=== PATIENT | male | born 1930 | race Caucasian/White ===

== ENCOUNTER 2018-06-15 12:44 | Emergency (ER) | payer MEDICARE, BC ==
[~2018-06-15] VITALS: Ht 172.7 cm; Wt 81.6 kg
[2018-06-15] MEDS ORDERED: IPRATRPIUM/ALBUTEROL 0.5/2.5MG 3 ML NEBU. NEB ONE (14:00)
[2018-06-15] MEDS ORDERED: predniSONE 10 MG TABLET PO ONE (14:00)
--- NOTE | 2018-06-15 14:11 | PHYS DOC ---
Past Medical History Past Medical History: High Cholesterol, Hypertension Past Surgical History: Other Additional Past Surgical Histo: VALVE REPLACEMENT X 2 Alcohol Use: None Drug Use: None Adult General Chief Complaint Chief Complaint: SHORTNESS OF BREATH HPI HPI Patient is a 87 year old male who presents with productive cough for the last 4 weeks and shortness of air. He denies fever. He states been taking Mucinex the last Mucinex pill being last night. Patient states is thick brown mucus. He states that he started feeling better yesterday so today he was got up and went outside and once the corner his lungs he began coughing. Patient denies body aches, fever, chest pain, nausea, vomiting, diarrhea, dizziness, syncope, numbness or tingling. Patient states he also has a headache because sinus congestion. Review of Systems Review of Systems Constitutional: Denies fever or chills [] Eyes: Denies change in visual acuity, redness, or eye pain [] HENT: nasal congestion or denies sore throat [] Respiratory: cough or shortness of breath [] Cardiovascular: No additional information not addressed in HPI [] GI: Denies abdominal pain, nausea, vomiting, bloody stools or diarrhea [] : Denies dysuria or hematuria [] Musculoskeletal: Denies back pain or joint pain [] Integument: Denies rash or skin lesions [] Neurologic: Denies headache, focal weakness or sensory changes [] All other systems were reviewed and found to be within normal limits, except as documented in this note. Current Medications Current Medications Current Medications Medications (Trade) Dose Ordered Sig/Nolan Start Time Stop Time Status Last Admin Dose Admin Albuterol/ Ipratropium (Duoneb) 3 ml 1X ONCE 06/15/18 14:00 06/15/18 14:01 DC 06/15/18 14:44 3 ML Prednisone (Prednisone) 50 mg 1X ONCE 06/15/18 14:00 06/15/18 14:01 DC 06/15/18 14:00 50 MG Allergies Allergies Allergies Coded Allergies Type Severity Reaction Last Updated Verified No Known Drug Allergies 06/15/18 No Physical Exam Physical Exam Constitutional: Well developed, well nourished, no acute distress, non-toxic appearance. [] HENT: Normocephalic, atraumatic, bilateral external ears normal, oropharynx moist, no oral exudates, nose normal. Bilateral tympanics boggy [] Eyes: PERRLA, EOMI, conjunctiva normal, no discharge. [] Neck: Normal range of motion, no tenderness, supple, no stridor. [] Cardiovascular:Heart rate regular rhythm, no murmur [] Lungs & Thorax: Bilateral upper breath sounds clear expiratory wheezes to auscultation [] Abdomen: Bowel sounds normal, soft, no tenderness, no masses, no pulsatile masses. [] Skin: Warm, dry, no erythema, no rash. [] Back: No tenderness, no CVA tenderness. [] Extremities: No tenderness, no cyanosis, no clubbing, ROM intact, no edema. [] Neurologic: Alert and oriented X 3, normal motor function, normal sensory function, no focal deficits noted. [] Psychologic: Affect normal, judgement normal, mood normal. [] Current Patient Data Vital Signs Vital Signs Date Time Temp Pulse Resp B/P (MAP) Pulse Ox O2 Delivery O2 Flow Rate FiO2 06/15/18 14:44 Room Air 06/15/18 13:03 97.9 57 21 165/82 (109) 96 97.9 Lab Values Laboratory Tests Test 06/15/18 14:51 White Blood Count 8.0 x10^3/uL (4.0-11.0) Red Blood Count 4.53 x10^6/uL (4.30-5.70) Hemoglobin 14.3 g/dL (13.0-17.5) Hematocrit 42.4 % (39.0-53.0) Mean Corpuscular Volume 94 fL (79-100) Mean Corpuscular Hemoglobin 32 pg (25-35) Mean Corpuscular Hemoglobin Concent 34 g/dL (31-37) Red Cell Distribution Width 14.5 % (11.5-14.5) Platelet Count 203 x10^3/uL (140-400) Neutrophils (%) (Auto) 61 % (31-73) Lymphocytes (%) (Auto) 24 % (24-48) Monocytes (%) (Auto) 9 % (0-9) Eosinophils (%) (Auto) 4 % (0-3) H Basophils (%) (Auto) 1 % (0-3) Neutrophils # (Auto) 4.9 x10^3uL (1.8-7.7) Lymphocytes # (Auto) 1.9 x10^3/uL (1.0-4.8) Monocytes # (Auto) 0.7 x10^3/uL (0.0-1.1) Eosinophils # (Auto) 0.3 x10^3/uL (0.0-0.7) Basophils # (Auto) 0.1 x10^3/uL (0.0-0.2) Sodium Level 142 mmol/L (136-145) Potassium Level 4.4 mmol/L (3.5-5.1) Chloride Level 106 mmol/L (98-107) Carbon Dioxide Level 26 mmol/L (21-32) Anion Gap 10 (6-14) Blood Urea Nitrogen 23 mg/dL (8-26) Creatinine 1.1 mg/dL (0.7-1.3) Estimated GFR (Cockcroft-Gault) 63.6 BUN/Creatinine Ratio 21 (6-20) H Glucose Level 99 mg/dL (70-99) Calcium Level 9.5 mg/dL (8.5-10.1) Total Bilirubin 1.2 mg/dL (0.2-1.0) H Aspartate Amino Transferase (AST) 26 U/L (15-37) Alanine Aminotransferase (ALT) 30 U/L (16-63) Alkaline Phosphatase 70 U/L (46-116) Troponin I Quantitative < 0.017 ng/mL (0.000-0.055) Total Protein 7.8 g/dL (6.4-8.2) Albumin 4.1 g/dL (3.4-5.0) Albumin/Globulin Ratio 1.1 (1.0-1.7) Laboratory Tests 06/15/18 14:51 Laboratory Tests 06/15/18 14:51 EKG EKG Sinus rhythm and no STEMI[] Interpretation Time: [address] Fulton Radiology/Procedures Radiology/Procedures Chest xray Impressions: [facility] [address] [place] [address] IMAGING REPORT Signed PATIENT: KELL BURTON ACCOUNT: [id number] : 1930 LOCATION: ER AGE: 87 SEX: M EXAM STATUS: PRE ER ORD. PHYSICIAN: BG KIM APRN REASON: cough, soa PROCEDURE: CHEST PA & LATERAL AP and Lateral Views of the Chest 06/15/2018 1:59 PM Indication: SOA, WET COUGH X1 MONTH Comparison: None available no pneumothorax or pleural effusion is identified. The heart is enlarged. Valvular prosthesis noted. No focal consolidative infiltrate is seen. No acute osseous changes are identified. Degenerative changes of thoracic spine are noted. Left posterior sixth rib deformity noted. IMPRESSION: 1. No evidence of acute cardiopulmonary process. 2. Cardiomegaly Electronically signed by: Fadi Garcia MD (06/15/2018 2:16 PM) [id number] DICTATED and SIGNED BY: FADI GARCIA MD DATE: 06/15/18 1414 Course & Med Decision Making Course & Med Decision Making Patient is a 87 year old male who presents with productive cough for the last 4 weeks and shortness of air. He denies fever. He states been taking Mucinex the last Mucinex pill being last night. Patient states is thick brown mucus. He states that he started feeling better yesterday so today he was got up and went outside and once the corner his lungs he began coughing. Patient denies body aches, fever, chest pain, nausea, vomiting, diarrhea, dizziness, syncope, numbness or tingling. Patient states he also has a headache because sinus congestion. Patient has history of high cholesterol, valve replacement 2, hypertension and smoked 30 years ago. Current vital signs are 165/82, 21 respirations, 57 heart rate, 97.9, 96% on room air. Patient walks with a steady gait. Patient speaks with a clear full Sentences. No peripheral edema. Abdomen is soft and nontender. Upper breath sounds have expiratory wheezes and lower breath sounds bilaterally are diminished. Heart rate regular without murmur. Throat is reddened but there are no exudates or swelling. He does have postnasal drip. Bilateral ear tympanic are boggy in color. Skin is pink warm and dry. Mucous membrane are moist. PERRLA. Neurologically intact. Patient is given a breathing treatment and a dose of steroid in the ED. lab work is unremarkable. Chest x-ray shows no acute findings. Patient will be put on a Medrol Dosepak and a Z-Mario Alberto. Patient is to call his doctor in follow-up as soon as possible. Patient has probable bronchitis. Vital signs are stable and patient is stable. Dragon Disclaimer Dragon Disclaimer This electronic medical record was generated, in whole or in part, using a voice recognition dictation system. Departure Departure Impression: Primary Impression: Upper respiratory infection Disposition: 01 HOME, SELF-CARE Condition: STABLE Patient Instructions: Upper Respiratory Infection, Adult Additional Instructions: Take medications as prescribed. Call your doctor soon as possible for follow-up care. Return if her symptoms are worsening, began running a fever, increased shortness of air, chest pain, nausea or vomiting. Scripts Azithromycin (AZITHROMYCIN TABLET) 250 Mg Tablet 1 PKG PO UD, #6 TAB Prov: BG KIM [employer] 06/15/18 Methylprednisolone (MEDROL) 4 Mg Tab.ds.pk 1 PKG PO UD, #1 PKG Prov: BG KIM [employer] SAL[employer]INEER 06/15/18 Problem Qualifiers Primary Impression: Upper respiratory infection URI type: unspecified URI Qualified Codes: J06.9 - Acute upper respiratory infection, unspecified BG KIM [employer] SAL[employer] ENGINEER Jun 15, 2018 14:11
--- NOTE | 2018-06-15 14:21 | RAD ---
AP and Lateral Views of the Chest 06/15/2018 1:59 PM Indication: SOA, WET COUGH X1 MONTH Comparison: None available no pneumothorax or pleural effusion is identified. The heart is enlarged. Valvular prosthesis noted. No focal consolidative infiltrate is seen. No acute osseous changes are identified. Degenerative changes of thoracic spine are noted. Left posterior sixth rib deformity noted. IMPRESSION: 1. No evidence of acute cardiopulmonary process. 2. Cardiomegaly Electronically signed by: Fadi Pollard MD (06/15/2018 2:16 PM) [id number]
--- NOTE | 2018-06-15 14:33 | EKG ---
[facility] [address] [place] [address] Test Date: 2018-06-15 Test Time: 14:12:26 Pat Name: KELL BURTON Department: Room: Gender: M Case Filler: : 1930 Requested By: BG KIM Order Number: [id number] Reading MD: Measurements Intervals [place] Rate: 61 P: DC: QRS: 24 QRSD: 82 T: 11 QT: 434 QTc: 438 Interpretive Statements IRREGULAR RHYTHM, NO P-WAVE FOUND LOW LIMB LEAD VOLTAGE NO SPECIFIC ECG ABNORMALITIES RI6.01 No previous ECG available for comparison
[2018-06-15 15:09] LABS: BASO # 0.1 x10^3/uL (0.0-0.2); BASO % 1 % (0-3); EOS # 0.3 x10^3/uL (0.0-0.7); EOS % 4 % (0-3); HEMATOCRIT 42.4 % (39.0-53.0); HEMOGLOBIN 14.3 g/dL (13.0-17.5); LYMPH # 1.9 x10^3/uL (1.0-4.8); LYMPH % 24 % (24-48); MEAN CORPUSCULAR HEMOGLOBIN 32 pg (25-35); MEAN CORPUSCULAR HGB CONC 34 g/dL (31-37); MEAN CORPUSCULAR VOLUME 94 fL (79-100); MONO # 0.7 x10^3/uL (0.0-1.1); MONO % 9 % (0-9); NEUT # 4.9 x10^3uL (1.8-7.7); NEUT % 61 % (31-73); PLATELET COUNT 203 x10^3/uL (140-400); RED BLOOD COUNT 4.53 x10^6/uL (4.30-5.70); RED CELL DISTRIBUTION WIDTH 14.5 % (11.5-14.5)
[2018-06-15 15:16] LABS: CALCIUM 9.5 mg/dL (8.5-10.1); CREATININE 1.1 mg/dL (0.7-1.3); GFR 63.6; POTASSIUM 4.4 mmol/L (3.5-5.1)
[2018-06-15 15:22] LABS: ALBUMIN 4.1 g/dL (3.4-5.0); ALBUMIN/GLOBULIN RATIO 1.1 (1.0-1.7); TOTAL BILIRUBIN 1.2 mg/dL (0.2-1.0); TOTAL PROTEIN 7.8 g/dL (6.4-8.2)
[2018-06-15] MEDS ORDERED: METH4TAB2 PO (15:36)
[2018-06-15] MEDS ORDERED: AZIT250T6 PO (15:37)
[2018-06-15 16:07] VITALS: BP 158/67
== END 2018-06-15 16:05 | disposition home or self-care (01) ==
LOC: ER 12:44
DX: J06.9 Acute upper respiratory infection, unspecified (principal); I10 Essential (primary) hypertension; E78.00 Pure hypercholesterolemia, unspecified
CPT/HCPCS: 36415; 71046; 80053; 84484; 85025; 93005; 94640; 99284; J7512; J7620